=== PATIENT | female | born 1990 | race Two or more races ===

== ENCOUNTER 2023-07-28 23:38 | Emergency (ER) | payer MEDICAID ==
[~2023-07-28] VITALS: Ht 157.5 cm; Wt 63.5 kg
[2023-07-29 00:02] VITALS: TEMP 98
[2023-07-29] MEDS ORDERED: IBUPROFEN 600 MG TABLET ONE (00:23)
[2023-07-29] MEDS ORDERED: IBUPROFEN 400 MG TABLET PO ONE (00:30)
[2023-07-29 01:14] VITALS: BP 131/71; O2SAT 100
== END 2023-07-29 01:15 | disposition home or self-care (01) ==
LOC: ER 23:46
DX: S00.11XA Contusion of right eyelid and periocular area, initial encounter (principal); S20.211A Contusion of right front wall of thorax, initial encounter; R07.89 Other chest pain; W22.01XA Walked into wall, initial encounter; Y93.89 Activity, other specified; Y92.89 Other specified places as the place of occurrence of the external cause; Y99.8 Other external cause status
CPT/HCPCS: 70450-TC; 70486-TC; 71100-TC